=== PATIENT | male | born 1955 | race Caucasian/White ===

== ENCOUNTER → 2021-07-10 | Outpatient (CLI) | payer OTHER | LOC: MHCPAIN 09:26 | DX: M47.816 Spondylosis without myelopathy or radiculopathy, lumbar region (principal); M53.3 Sacrococcygeal disorders, not elsewhere classified | CPT/HCPCS: G0463 ==

== ENCOUNTER → 2021-07-20 | Outpatient (CLI) | payer OTHER ==
[~2021-07-20] MED LIST: CRESTOR20 MG PO; EFFEXOR-XR150 MG PO; MULTI VITAMINS1 TAB PO; RYBELSUS3 MG PO
== END ==
LOC: MHCPAIN 07:47
DX: M53.3 Sacrococcygeal disorders, not elsewhere classified (principal); M47.817 Spondylosis without myelopathy or radiculopathy, lumbosacral region
CPT/HCPCS: G0260; J1040; Q9967

== ENCOUNTER 2021-07-21 06:44 | Day surgery (SDC) | payer OTHER ==
[~2021-07-21] VITALS: Ht 175.3 cm; Wt 128.6 kg
[2021-07-21] MEDS ORDERED: RYBELSUS3 MG PO (07:01)
[2021-07-21] MEDS ORDERED: EFFEXOR-XR150 MG PO (07:01)
[2021-07-21] MEDS ORDERED: CRESTOR20 MG PO (07:02)
[2021-07-21] MEDS ORDERED: MULTI VITAMINS1 TAB PO (07:02)
[2021-07-21 07:24] VITALS: BP 135/93; PULSE 73; TEMP 98.1
[2021-07-21 09:05] VITALS: BP 136/87; PULSE 66; TEMP 97.1
[2021-07-21 09:20] VITALS: BP 131/88; PULSE 67
[2021-07-21 09:35] VITALS: BP 133/91; PULSE 66
--- NOTE | 2021-07-21 09:45 | NUR ---
904 PT RETURNED TO [facility] VIA CART, TRANSFERED TO CHAIR WITH RN ASSIST. ALERT AND ORIENTED. MONITORS ATTACHED, INTERVALS AND ALARMS SET. PT DENIES DISCOMFORT. JUICE AND MUFFIN PROVIDED. AT BEDSIDE. 919 VSS. TOLERATING FOOD AND DRINK WELL. 934 VSS. REVIEWED ALL DISCHARGE INSTRUCTIONS AND ANSERED ALL QUESTIONS. DR. HERNANDEZ IN TO SPEAK WITH PT. IV REMOVED WITHOUT COMPLICATION. PT ALLOWED TO DRESS. 944 PT TRANSFERED VIA WHEELCHAIR TO PERSONAL VEHICLE TO BE DRIVEN HOME BY .
== END 2021-07-21 09:45 | disposition home or self-care (01) ==
LOC: SDCO 06:44
DX: Z12.11 Encounter for screening for malignant neoplasm of colon (principal); K57.30 Diverticulosis of large intestine without perforation or abscess without bleeding; K62.89 Other specified diseases of anus and rectum; K64.0 First degree hemorrhoids; Z86.010 Personal history of colon polyps
CPT/HCPCS: J2704; J7030

== ENCOUNTER → 2021-08-08 | Outpatient (CLI) | payer OTHER | LOC: MHCPAIN 07:42 | DX: M47.817 Spondylosis without myelopathy or radiculopathy, lumbosacral region (principal); M54.50 Low back pain, unspecified; M53.3 Sacrococcygeal disorders, not elsewhere classified | CPT/HCPCS: G0463 ==

== ENCOUNTER → 2021-08-17 | Outpatient (CLI) | payer OTHER | LOC: MHCPAIN 10:05 | DX: M47.817 Spondylosis without myelopathy or radiculopathy, lumbosacral region (principal); M54.50 Low back pain, unspecified; M53.3 Sacrococcygeal disorders, not elsewhere classified ==

== ENCOUNTER → 2021-08-31 | Outpatient (CLI) | payer OTHER | LOC: MHCPAIN 08:54 | DX: M47.817 Spondylosis without myelopathy or radiculopathy, lumbosacral region (principal); M54.50 Low back pain, unspecified; M53.3 Sacrococcygeal disorders, not elsewhere classified | CPT/HCPCS: G0463 ==

== ENCOUNTER → 2021-09-28 | Outpatient (CLI) | payer OTHER | LOC: MHCPAIN 07:47 | DX: M47.817 Spondylosis without myelopathy or radiculopathy, lumbosacral region (principal); M54.50 Low back pain, unspecified; M53.3 Sacrococcygeal disorders, not elsewhere classified | CPT/HCPCS: G0463; J2250; J3010 ==

== ENCOUNTER → 2023-04-25 | Outpatient (CLI) | payer OTHER ==
[~2023-04-25] MED LIST changes: +Lidocaine PF 2% (20 MG/ML) 5 ML VIAL ONE; +Midazolam 2 MG/2 ML VIAL ONE; +fentaNYL 50 MCG/ML 2 ML VIAL ONE
== END ==
LOC: MHCPAIN 13:17
DX: M47.817 Spondylosis without myelopathy or radiculopathy, lumbosacral region (principal); M54.50 Low back pain, unspecified
CPT/HCPCS: J0665; J2250; J3010

== ENCOUNTER → 2023-06-24 | Outpatient (CLI) | payer OTHER ==
[~2023-06-24] MED LIST changes: -Lidocaine PF 2% (20 MG/ML) 5 ML VIAL ONE; -Midazolam 2 MG/2 ML VIAL ONE; -fentaNYL 50 MCG/ML 2 ML VIAL ONE
== END ==
LOC: MHCPAIN 07:45
DX: M47.816 Spondylosis without myelopathy or radiculopathy, lumbar region (principal); M48.061 Spinal stenosis, lumbar region without neurogenic claudication
CPT/HCPCS: G0463